=== PATIENT | female | born 1960 | race Caucasian/White ===

== ENCOUNTER 2022-07-12 13:10 | Emergency (ER) | payer OTHER ==
[2022-07-12] MEDS ORDERED: Diltiazem 25 MG/5 ML SDV IVPUSH ONE (13:31)
[2022-07-12] MEDS ORDERED: Metoprolol Succinate 50 MG Tab.ER PO ONE ×3 (13:48→17:25)
[2022-07-12 14:10] LABS: BASOPHILS PERCENT AUTO 0.6 % (0.2-1.5); EOSINOPHILS ABSOLUTE AUTO 0.2 x10-3/uL (0.0-0.8); EOSINOPHILS PERCENT AUTO 3.6 % (0.6-8.1); HEMATOCRIT 40.4 % (34.2-48.2); HEMOGLOBIN 13.1 g/dL (11.4-15.5); LYMPHOCYTES ABSOLUTE AUTO 0.9 x10-3/uL (1.0-4.4); MEAN CORPUSCULAR HEMOGLOBIN 28.7 pg (23.9-33.9); MEAN CORPUSCULAR HGB CONC 32.5 g/dL (31.9-34.8); MEAN CORPUSCULAR VOLUME 88.4 fL (76.7-100.5); MEAN PLATELET VOLUME 9.3 fL (7.1-12.4); MONOCYTES ABSOLUTE AUTO 0.5 x10-3/uL (0.3-1.0); MONOCYTES PERCENT AUTO 10.3 % (4.4-15.7); NEUTROPHILS ABSOLUTE AUTO 3.5 x10-3/uL (1.5-6.3); NEUTROPHILS PERCENT AUTO 67.5 % (30.8-76.2); PLATELET COUNT,PLT 185 x10(3)uL (151-488); RED BLOOD CELL COUNT 4.57 x10(6)uL (3.60-5.20); RED CELL DISTRIBUTION WIDTH 15.8 % (12.3-16.5); WHITE BLOOD CELL COUNT,WBC 5.2 x10-3/uL (3.0-10.3)
[2022-07-12 14:12] LABS: BLOOD UREA NITROGEN,BUN 21 mg/dL (7-18); CALCIUM 9.1 mg/dL (8.6-10.2); CARBON DIOXIDE,CO2 25 mmol/L (21-32); CHLORIDE,CL 107 mmol/L (100-110); EST CRCL DRUG DOSING (CG) 65.12 mL/min; ESTIMATED GFR 63 mL/min (>60); GLUCOSE RANDOM 103 mg/dL (80-116); POTASSIUM,K 4.9 mmol/L (3.5-5.3); SODIUM,NA 142 mmol/L (135-145)
[2022-07-12 14:19] LABS: A/G RATIO 1.3; ALANINE AMINOTRANSFERASE,ALT 42 U/L (12-36); ALKALINE PHOSPHATASE 97 IU/L (56-112); ASPARTATE AMNIOTRANSFERASE,AST 31 IU/L (5-25); BILIRUBIN TOTAL 0.6 mg/dL (0.1-1.3)
[2022-07-12 14:22] LABS: TROPONIN I 13.1 pg/mL (4.0-60.3)
[2022-07-12] MEDS ORDERED: Iopamidol 755 Mg/ML 100 ML Bottle IV ONE (14:45)
[2022-07-12] MEDS ORDERED: Furosemide 40 MG/4 ML VIAL IVPUSH ONE (15:39)
[2022-07-12] MEDS ORDERED: Doxycycline 100 MG Tab PO ONE (16:46)
[2022-07-12] MEDS ORDERED: Aspirin 81 MG Tab.Chew PO ONE (16:47)
[2022-07-12 17:30] VITALS: BP 131/101; PULSE 100
== END 2022-07-12 17:40 | disposition home or self-care (01) ==
LOC: FB.ED 13:10
DX: I48.91 Unspecified atrial fibrillation (principal); I42.8 Other cardiomyopathies; I50.9 Heart failure, unspecified; J90 Pleural effusion, not elsewhere classified; J20.9 Acute bronchitis, unspecified; Z79.82 Long term (current) use of aspirin
CPT/HCPCS: 36415; 71275; 80053; 83880; 84443; 84484; 85025; 85379; 86140; 93005; 96374; 96375; 99285; A9270; J1940; J3490; Q9967